=== PATIENT | male | born 1950 | race Caucasian/White ===

== ENCOUNTER 2023-11-20 17:42 | Emergency (ER) | payer MEDICARE, OTHER, SELFPAY ==
[2023-11-20 17:45] VITALS: BP 155/78
--- NOTE | 2023-11-20 22:09 | ED.GENMED ---
History of Present Illness
General
Chief Complaint: DVT/Possible Blood Clot
Source: patient
Exam Limitations: none
Time Seen by Provider: 11/20/23 18:03
Nursing documentation reviewed up to this point in time: agreed with
Travel History
Have you had any contact with someone who has COVID-19?: No
Do you have any symptoms of coronavirus? Fever > 100 degrees, chills, cough, shortness of breath, sore throat, loss of taste or smell, muscle aches, or headache?: No
History of Present Illness
History of Present Illness:
Patient to ED with cmplaint of left calf pain. States he had LTKR yesterday. Today he was seen by home PT and advised to come to ED due to calf pain. Brought to ED by spouse for eval.
Past History
Past History
ED Past Medical History: None
ED Past Surgical History: Orthopedic (LTKR)
Review of Systems
Review of Systems
Constitutional: Reports no symptoms
Respiratory: Reports no symptoms
Cardiac: Reports no symptoms
Musculoskeletal: Reports other (left calf pain. Post op swelling to LLE present. No s/s infection. )
Skin: Reports other (Left knee dressing dry and intack. No redness to area. No redness to calf. )
Neurological: Reports no symptoms
Psychiatric: Reports no symptoms
Phy Exam
General Physical Exam
General Presentation: well appearing and no apparent distress
General age: appears stated age
General Skin: warm and dry
General Habitus: normal
General Mental: alert
Musculoskeletal Exam
Musculoskeletal Exam: neuro vasc intact
Skin Exam
Skin Exam: normal color, warm/dry, no rash and other (Left knee dressing dry and intact. Moderate post-operative swelling to knee and LLE. Minimal bruising at knee. No erythema. )
Psychiatric Exam
Psychiatric Exam: normal mood/affect
Course
Orders/Labs/Results
Orders:
Orders
11/20/23 17:48
US Legs, Left [US Periph Venous LOWER Ext LT] Urgent
Comment:
Reason For Exam: calf pain
Vital Signs
Initial and Last Documented VS:
Initial Vital Signs
Temp Pulse Resp BP Pulse Ox
98.3 F 58 18 155/78 98
11/20/23 17:45 11/20/23 17:45 11/20/23 17:45 11/20/23 17:45 11/20/23 17:45
Last Documented Vital Signs
Temp Pulse Resp BP Pulse Ox
98.3 F 58 18 155/78 98
11/20/23 17:45 11/20/23 17:45 11/20/23 17:45 11/20/23 17:45 11/20/23 17:45
*Radiology
Radiology exam reviewed: radiology read reviewed
*Pulse Oximetry
Patient hypoxic: no
*Critical Care Note
Total Time (30-74mins, 75-104mins- exclusive of procedures): Not Applicable
ED Attending Note
-
Portions of this chart may have been created with voice recognition software.� Occasional wrong word or��sound alike� substitutions may have occurred due to the inherent limitations of voice recognition software.
Discharge Plan
Departure
Patient Disposition: Home (Routine Discharge)
Date of Disposition: 11/20/23
Time of Disposition: 19:27
Patient with high blood pressure during this ER visit?: No
Condition: Good
Covid-19: Not Applicable
Discharge Problem:
Calf pain
Instructions: Swelling
Referrals:
Chad Solorio DO [Family Provider] -
Activity Restrictions/Additional Instructions:
Return to the emergency department for any changes in/worsening of your symptoms.
Interventions
Interventions:
*Risk Screen - Suicide Last Done: 11/20/23 17:45
*General Assessment Last Done: 11/20/23 17:45
*Neglect/Abuse Screening Last Done: 11/20/23 17:45
ED- Fall Risk Assessment Last Done: 11/20/23 19:00
*Nursing Disposition Last Done: 11/20/23 19:35
ED- Cardiac Assessment Last Done: 11/20/23 19:00
ED- Pulmonary Assessment Last Done: 11/20/23 19:00
ED-Peripheral Vascular Assessment Last Done: 11/20/23 19:00
ED-Skin Assessment Last Done: 11/20/23 19:00
Discharge Date and Time
Discharge Date/Time: 11/20/23 19:36
Print Language: SWEDISH
== END 2023-11-20 19:36 | disposition home or self-care (01) ==
LOC: EMR 17:42
PROVIDERS: EMERGENCY PHYSICIAN Emergency Medicine; FAMILY PHYSICIAN Family Medicine
DX: M79.662 Pain in left lower leg (principal)
CPT/HCPCS: 99284; 93971